=== PATIENT | female | born 1965 | race African-American/Black ===

== ENCOUNTER 2016-11-23 22:35 | Emergency (ER) | payer SELFPAY ==
[~2016-11-23] VITALS: Ht 177.8 cm; Wt 59.0 kg
[2016-11-23 22:41] VITALS: BP 160/111
[2016-11-23] MEDS ORDERED: Vancomycin 1 GM in D5W 275 ML IVPB SCH (22:45)
[2016-11-23] MEDS ORDERED: cefTRIAXone 1 GM in NS 55 ML IVPB ONE (22:45)
[2016-11-23] MEDS ORDERED: Lidocaine 1% MPF 10mg/ml 5ml IM ONE (23:00)
[2016-11-23] MEDS ORDERED: Ketorolac 30mg Inj IV ONE (23:00)
[2016-11-23] MEDS ORDERED: Lidocaine 2% 20mg/ml/Epi 0.005mg/ml 20ml vial ONE (23:39)
[2016-11-23] MEDS ORDERED: Bactrim DS (160mg/800mg) tab ORAL ONE (23:45)
[2016-11-23] MEDS ORDERED: Cephalexin 500mg cap ORAL ONE (23:45)
--- NOTE | 2016-11-23 23:51 | Emergency Room Report ---
History of Present Illness General Chief Complaint: Chest Pain Source: Patient, EMS Present Illness HPI Patient is a 50-year-old female who presented after increased chest pain. 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 She reports having prior history of abscess to her left upper extremity. Patient denied any fever. She had not been vomiting. She had denied prior cardiac history. The patient states she last used heroin this morning Allergies: Coded Allergies: No Known Allergies (Unverified , 11/23/16) Patient History Past Medical History: see triage record Last Menstrual Period: ukn Now: No - ukn Reviewed Nursing Documentation: PMH: Agreed, PSxH: Agreed Nursing Documentation-PMH Past Medical History: No History, Except For Hx Hypertension: Yes Review of Systems All Other Systems: negative except mentioned in HPI Physical Exam Vital Signs Date Time Temp Pulse Resp B/P Pulse Ox O2 Delivery O2 Flow Rate FiO2 11/23/16 22:35 99.3 100 18 160/111 98 Room Air Sp02 EP Interpretation: reviewed, normal General Appearance: normal inspection, well appearing, no apparent distress, alert, GCS 15 Head: atraumatic ENT: normal ENT inspection, hearing grossly normal, normal voice Neck: normal inspection, full range of motion, supple, no bony tend Respiratory: normal inspection, lungs clear, normal breath sounds, no respiratory distress, no retraction, no wheezing Cardiovascular #1: regular rate, rhythm, no edema Gastrointestinal: normal inspection, normal bowel sounds, non tender, soft, no guarding, no hernia Genitourinary: no CVA tenderness Musculoskeletal: normal inspection, back normal, normal range of motion Neurologic: normal inspection, alert, oriented x3, responsive, accounting consultant III-XII nml as tested, speech normal Psychiatric: normal inspection, judgement/insight normal, mood/affect normal Skin: normal inspection, normal color, no rash, other - left shoulder fluctuance Procedures Incision and Drainage Incision and Drainage : Consent: Verbal Site: left shoulder Blade Size: 11 I & D Procedure: betadine prep, sterile drapes applied, sterile dressing applied Wound Location: upper extremity Wound's Depth, Shape: into muscle Wound Length (cm): 1 Anesthesia: Lidocaine w/ Epi Volume Anesthetic (ccs): 5 Patient Tolerated: Well Complications: None Progress minimal purulent material Medical Decision Making Diagnostic Impression: Primary Impression: Abscess of deltoid region ER Course Patient presented for chest pain. Differential diagnosis included but was not limited to acute coronary syndrome, pulmonary embolism, pneumonia, aortic dissection, shingles, pneumothorax, aortic dissection, esophageal rupture, pericarditis. Patient appears to have an abscess to her left shoulder. The patient was verbally consented for incision and drainage. The incised area of the left shoulder with a 1 cm incision after sterile prep and drape there is minimal purulent drainage noted.Patient is given oral Keflex as well as Bactrim.The patient is advised to follow up with primary care doctor in 1-2 days. Patient is advised to return if any worsening condition or if any changes in status that are concerning. EKG Diagnostic Results Rate: tachycardiac Rhythm: NSR ST Segments: no acute changes ASA given to the pt in ED: No Rhythm Strip Diag. Results EP Interpretation: yes Rhythm: NSR, no PVC's, no ectopy Chest X-Ray Diagnostic Results Chest X-Ray Diagnostic Results : Chest X-Ray Ordered: Yes # of Views/Limited/Complete: 1 View Indication: Chest Pain EP Interpretation: Yes Interpretation: no consolidation, no effusion, no pneumothorax, no acute cardiopulmonary disease Impression: No acute disease Interpreting ER Provider: Electronically signed by Dr. Yury Hedrick M.D. Last Vital Signs Date Time Temp Pulse Resp B/P Pulse Ox O2 Delivery O2 Flow Rate FiO2 11/23/16 22:35 99.3 100 18 160/111 98 Room Air Status: improved Disposition: HOME, SELF-CARE Condition: Stable Scripts Cephalexin* (KEFLEX*) 500 Mg Capsule 500 MG ORAL Q6H, #28 CAP 0 Refills Prov: Yury Hedrick 11/24/16 Trimethoprim/Sulfamethoxazole 160/800* (BACTRIM DS TABLET*) 1 Each Tablet 1 TAB ORAL TWICE A DAY, #20 TAB Prov: Yury Hedrick 11/24/16 Referrals: NOT CHOSEN ALEXANDRA/,REFERRING (PCP) Yury Hedrick Nov 23, 2016 23:51
[2016-11-24] MEDS ORDERED: BACTRIM DS TAB1 EAC1 ORAL
[2016-11-24] MEDS ORDERED: KEFLEX500 MG ORAL
[2016-11-24] MEDS ORDERED: Cephalexin 500mg cap ONE (00:19)
[2016-11-24] MEDS ORDERED: Bactrim DS (160mg/800mg) tab ONE (00:19)
[2016-11-24 00:30] VITALS: BP 162/94
--- NOTE | 2016-11-26 09:14 | Diagnostic Imaging Report ---
Indication: SOB. Technique: XRAY CHEST 1 V. Comparison: None Findings: The heart is normal in size. The lungs are clear. No pleural fluid. There is atherosclerotic change of the aorta. Degenerative changes noted in thoracic spine. Impression: Atherosclerotic change. Degenerative change of the thoracic spine. Otherwise negative chest.
--- NOTE | 2016-11-29 01:02 | Cardiology Report ---
APPROVED REPORT EKG Measurement Heart [id number] Sinus tachycardia Left atrial enlargement Left axis deviation Left ventricular hypertrophy Abnormal ECG
== END 2016-11-24 00:30 | disposition home or self-care (01) ==
LOC: EDBD 22:35 → EMR 23:14
DX: L02.414 Cutaneous abscess of left upper limb (principal); I10 Essential (primary) hypertension; F14.90 Cocaine use, unspecified, uncomplicated; F11.90 Opioid use, unspecified, uncomplicated
CPT/HCPCS: 10060; 71010; 93005